=== PATIENT | male | born 1980 | race Hispanic/Latino ===

== ENCOUNTER 2018-12-06 16:30 | Inpatient (IN) | payer SELFPAY ==
[~2018-12-06 16:30] MED LIST: ISOVUE-370 76%-LOCM 1 ML ONE
--- NOTE | 2018-12-06 16:48 | RAD ---
RADIOGRAPH CHEST 1 VIEW: DATE: 12/06/2018 HISTORY: Traumatic right-sided chest pain due to fall FINDINGS: There is no airspace density, pulmonary edema, or pneumothorax. The lateral costophrenic angles are n ot effaced. IMPRESSION: No acute pulmonary findings.
--- NOTE | 2018-12-06 16:57 | CT ---
CT Brain WO Con: 12/06/2018 4:40 PM CLINICAL HISTORY: Fall; level 2 trauma; the patient fell six-foot from a ladder hitting head on air-c onditioning unit. IMAGING TECHNIQUE: Multiple CT images were obtained of the brain without IV contrast. COMPARISON: None. FINDINGS: Infarct: No acute infarct evident. Hemorrhage: None.. Hydrocephalus: None.. Basal cisterns: Normal.. Cerebral parenchyma: Normal.. Midline shift: None.. Cerebellum: Normal. Brainstem: Normal. OTHER: Calvarium: There is a 2.5 cm depressed right parietal skull fracture that is displaced internally 6 m m, abutting the right parietal cortex with adjacent pneumocephalus. Visualized Paranasal sinuses: Clear.. Extracranial soft tissues:Overlying the right parietal skull fracture is a scalp laceration and right parietal scalp contusion. IMPRESSION: Depressed type right parietal skull fracture with associated pneumocephalus. Findings shawn led to Dr. Kowalski at 4:50 PM on December 06, 2018.
--- NOTE | 2018-12-06 16:59 | CT ---
CT Cervical Spine WO Con Indication: Fall 6 with from ladder; level 2 trauma; concern for neck injury COMPARISON: None. FINDINGS: Acute fracture/subluxation: None. Spinal alignment: No acute malalignment. Craniocervical junction: Within normal limits. Vertebral body heights: Maintained. Cervical spine degenerative change: None of significance. Lung apices: Clear. IMPRESSION: No acute osseous abnormality.
--- NOTE | 2018-12-06 17:07 | CT ---
CT Chest W Con: 12/06/2018 4:40 PM CLINICAL INDICATION: Level 2 trauma; fall 6 feet from a ladder with significant chest injury. COMPARISON: None.. FINDINGS: Lung and Large Airways: There is a focal contusion involving the posterior lateral right lower lobe. The left lung is clear. Pleura: There is a tiny right hemopneumothorax. Vessels: Normal appearing. Heart: Normal appearing. No pericardial effusion.. Mediastinum and Mirian: Normal. Chest Wall and Lower Neck: Normal. Upper Abdomen: There are 2 separate contusions involving the right hepatic lobe just subjacent to rig ht-sided rib fractures. The largest is seen within segment 7 of the right hepatic lobe measuring 3.3 cm. The additional contusion is seen within segment 6 of the right hepatic lobe measuring 1.8 cm. No definite free fluid is evident within the upper abdomen. Bones: There are right 8th through 12th rib fractures with segmental fractures involving the right 10 th through 12th ribs. There is a mildly displaced right L1 transverse process fracture. IMPRESSION: 1. Right eighth through 12th rib fractures involving the posterolateral right chest wall. The right 1 0th through 12th rib fractures are segmental. There is a mildly displaced right L1 transverse process fracture. 2. Small right hemopneumothorax and tiny pulmonary contusion involving the right lower lobe. 3. Grade 2 liver injury. 4. Findings concerning the CT the cervical spine and CT of the thorax were called to Dr. Kowalski at 5 :00 PM on December 06, 2018.
[2018-12-06] MEDS ORDERED: Adacel (T-DAP) 0.5 ML SYRINGE ONE (17:30)
[2018-12-06] MEDS ORDERED: Morphine 4 MG/ML VIAL ONE (17:30)
[2018-12-06] MEDS ORDERED: Morphine 2 MG/ML SYRINGE SLOW IVP PRN (18:08)
[2018-12-06] MEDS ORDERED: Dextrose 5% in Water 1,000 ML IV PRN (18:08)
[2018-12-06] MEDS ORDERED: Dextrose 50% Abboject 50 ML SYRINGE SLOW IVP PRN (18:08)
[2018-12-06] MEDS ORDERED: Ondansetron PF 4 MG/2 ML Vial IVP PRN (18:08)
[2018-12-06] MEDS ORDERED: hydrALAZINE 20 MG/ML VIAL SLOW IVP PRN (18:08)
[2018-12-06] MEDS ORDERED: Ondansetron ODT 4 MG TAB PO PRN (18:08)
[2018-12-06] MEDS ORDERED: Morphine 4 MG/ML VIAL SLOW IVP PRN (18:08)
[2018-12-06 18:12] LABS: #Eosinphils 0.1 thou/uL (0.0-0.7); #Lymphocytes 1.3 thou/uL (1.20-3.40); #Monocytes 0.6 thou/uL (0.11-0.59); #Neutrophils 11.5 thou/uL (1.40-6.50); %Eosinophils 0.9 % (0.0-10.0); %Lymphocytes 9.5 % (21.0-51.0); %Monocytes 4.6 % (0.0-10.0); %Neutrophils 84.8 % (42.0-75.0); Hemoglobin 15.3 g/dL (14.0-18.0); Mean Corpuscular HGB CONC 34.3 g/dL (32.0-36.0); Mean Corpuscular Hemoglobin 30.6 pg (27.0-31.0); Mean Corpuscular Volume 89.3 fL (78.0-98.0); Mean Platelet Volume 7.9 fL (7.4-10.4); Platelet Count 188 thou/uL (130-400); RBC Distribution Width 11.6 % (11.5-14.5); White Blood Cell (WBC) Count 13.5 thou/uL (4.8-10.8)
[2018-12-06] MEDS ORDERED: traMADol HCl 50 MG TAB PO PRN ×2 (18:15→18:31)
[2018-12-06] MEDS ORDERED: Cyclobenzaprine 10 MG TAB PO PRN (18:18)
[2018-12-06 18:19] LABS: PTT 27.3 SEC (22.9-36.1); Prothrombin Time 13.3 SEC (12.0-14.7)
[2018-12-06] MEDS ORDERED: Ketorolac Tromethamine 30 MG/ML VIAL ONE (18:21)
[2018-12-06 18:42] LABS: ALT (SGPT) 155 U/L (8-55); AST (SGOT) 179 U/L (5-34); Albumin 4.5 g/dL (3.5-5.0); Alkaline Phosphatase 78 U/L (40-150); Anion Gap 14 mmol/L (10-20); BUN (Urea Nitrogen) 13 mg/dL (8.9-20.6); Bilirubin, Total 1.1 mg/dL (0.2-1.2); Calc. Creatinine Clearance 0 mL/min (70-130); Calcium 9.6 mg/dL (7.8-10.44); Carbon Dioxide 24 mmol/L (22-29); Chloride 104 mmol/L (98-107); Estimated GFR-MDRD Greater than 90; Globulin 3.1 g/dL (2.4-3.5); Glucose 113 mg/dL (70-105); Potassium 3.7 mmol/L (3.5-5.1); Protein, Total 7.6 g/dL (6.0-8.3); Sodium 138 mmol/L (136-145)
[2018-12-06] MEDS ORDERED: Ketorolac Tromethamine 30 MG/ML VIAL IVP SCH (18:45)
[2018-12-06] MEDS ORDERED: Acetaminophen 1,000 MG in Premix Bag 1 BAG IVPB SCH (18:45)
[2018-12-06 19:13] LABS: Magnesium 2.3 mg/dL (1.6-2.6); Phosphorus 3.2 mg/dL (2.3-4.7)
--- NOTE | 2018-12-06 19:23 | HP ---
This is Wendy Montes NP dictating a report for Jose Daniel Reyna MD. ATTENDING TRAUMA SURGEON: Jose Daniel Reyna MD CONSULTS: Neurosurgery. HISTORY OF PRESENT ILLNESS: This is a level 2 trauma activation. This is a 38-year-old gentleman, who was at work when he did not realize the ladder moved causing him to fall. EMS reports a positive loss of consciousness. The patient states that when he fell, he hit his head and landed on air conditioner unit. The patient complained of right-sided rib pain and was given fentanyl 100 mcg IV for pain en route. The patient has been hemodynamically stable since the injury. The patient had minimal blood loss from head laceration. GCS has remained 15. The patient did not have any nausea or vomiting. The patient did have diarrhea yesterday, 4 episodes in which he took Imodium and it resolved. Otherwise, the patient has been healthy and has not seen a physician in several years. PAST MEDICAL HISTORY: The patient denies. PAST SURGICAL HISTORY: Left wrist surgery. SOCIAL HISTORY: Denies tobacco use. Occasional alcohol use. Denies any illicit drug use. The patient lives at home with his . The patient works in construction. ALLERGIES: DENIES ANY DRUG ALLERGIES. REVIEW OF SYSTEMS: A 10-point review of systems is negative unless otherwise indicated in the above HPI. PHYSICAL EXAMINATION: VITAL SIGNS: Blood pressure 144/93, pulse 85, respirations 20, temperature 98.2, SpO2 99% on room air. GENERAL: A well-appearing gentleman, in no acute distress. Moderate amount of pain from right rib fractures. HEENT: Head, right posterior scalp hematoma with a 2.5 cm L-shaped laceration, 4 delores placed by ER physician. Eyes, pupils equal and reactive at 2 mm bilateral, no visual changes. ENT; ears normal exam, external ears negative, tympanic membranes normal, no bleeding, no hemotympanum. Oropharynx exam normal. Mucous membranes are moist. Teeth are normal. NECK: Normal range of motion, trachea is midline. No posterior cervical tenderness. C-spine cleared by ER physician. RESPIRATORY: Slightly shallow respirations due to pain. No respiratory distress. Bilateral breath sounds clear to auscultation. No wheezing, rales, or rhonchi. No obvious deformity, tenderness to right upper chest. CARDIOVASCULAR: Regular rate and rhythm. No murmurs. No pedal edema. ABDOMEN: Soft, nontender, nondistended. No obvious injuries. PELVIS: Stable, nontender. BACK: Mild tenderness in the lumbar region, no step-offs. EXTREMITIES: Moves all extremities, pulses 2+ in all extremities, normal sensation, strength in all extremities 5/5. NEUROLOGIC: GCS 15. No focal deficits. The patient is oriented to person, place, time. Normal speech. LABORATORY DATA: WBC 13.5, RBC 5.00, hemoglobin 15.3, hematocrit 44.7, platelets 188. PT 13.3, INR 1.0, APTT 27.3. CMP results pending. DIAGNOSTIC DATA: Chest x-ray, no acute pulmonary findings. Brain CT; impression, there is a 2.5 cm depressed right parietal skull fracture that is displaced internally 6 mm, abutting the right parietal cortex with adjacent pneumocephalus. Visualized parasinuses clear. Extracranial soft tissues overlying the right parietal skull fracture is a scalp laceration and right parietal scalp contusion. Cervical spine CT, no acute osseous abnormality. Chest CT; impression, right 8th through 12th rib fractures involving the posterolateral right chest wall. The right 10 through 12 rib fractures are segmental. There is a mildly displaced right L1 transverse process fracture. Small right hemothorax and tiny pulmonary contusion involving the right lower lobe. Grade 2 liver injury. IMPRESSION: 1. Status post fall from 6 feet. 2. Right open depressed skull fracture with pneumocephalus. 3. Multiple right rib fractures. 4. Right pulmonary contusion. 5. Right small tiny hemopneumo. 6. Scalp laceration. 7. Displaced right L1 transverse process fracture. 8. Grade 2 liver injury. PLAN: We will admit the patient to the [facility] with frequent neuro checks. We will repeat a head CT per Neurosurgery request in the morning. We will repeat sooner if the patient has any neuro changes overnight. We will place the patient on rib fracture protocol. We will place the patient on a diet as tolerated. We will place the patient on mechanical DVT prophylaxis. We will hold chemical DVT prophylaxis at this time until we have a repeat head CT. We will repeat a chest x-ray in the morning. We will also repeat lab work in the morning. We will encourage incentive spirometer use. We will place a PT/OT consult. The plan has been discussed with the attending trauma surgeon who agrees. Job ID: [id number]
[2018-12-06] MEDS: Senokot S 8.6-50 MG TAB PO SCH (21:02)
[2018-12-06] MEDS: Sodium Chloride 0.9% 1,000 ML IV SCH (21:02)
[2018-12-06] MEDS: Ibuprofen 800 MG TAB PO SCH (21:02)
[2018-12-06] MEDS: Gabapentin 300 MG CAP PO SCH (21:02)
[2018-12-06] MEDS ORDERED: CEFAZOLIN 1 GM VIAL SLOW IVP SCH (22:00)
[2018-12-06 22:08] VITALS: BMI 24.8
[2018-12-06] MEDS: Lidocaine 5% Patch TD SCH (22:17)
[2018-12-06] MEDS: ceFAZolin 1 GM/D5W 1 GM in Premix Bag 1 BAG IVPB SCH (22:17)
[2018-12-07] MEDS: Acetaminophen 500 MG TAB PO SCH ×4 (00:10→17:10)
[2018-12-07] MEDS: traMADol HCl 50 MG TAB PO SCH ×4 (00:10→17:11)
--- NOTE | 2018-12-07 01:57 | CON ---
DATE OF CONSULTATION: This is Guerita Street PA-C dictating a report for Genaro Tee MD. HISTORY OF PRESENT ILLNESS: The patient is a 38-year-old male who is otherwise healthy, known to the emergency department per EMS after a mechanical fall off a ladder at approximately 6 foot high. The patient reportedly fell from the ladder, hitting his head on an A/C unit and then to the floor. Patient had positive LOC for approximately 1 minute. EMS arrived at the scene and brought the patient to the [facility] ER for further evaluation and management. The patient received 100 mcg of fentanyl prior to arrival for pain. CT of the head was notable for a small right-sided depressed parietal skull fracture. This is an open fracture with overlying laceration. CT of the cervical spine and remainder of the spine was negative for acute injuries. However, patient does have multiple rib fractures with right-sided hemopneumothorax and right-sided pulmonary contusions. There was also a notable right L1 transverse process fracture, which is inconsequential. I visited with the patient the bedside. His only complaint is some shortness breath and right-sided chest pain. There are multiple family members as well at the bedside, who are assisting with translation. PAST MEDICAL HISTORY: The patient is otherwise healthy. Denies any other medical problems. PAST SURGICAL HISTORY: Left hand surgery. SOCIAL HISTORY: The patient does not smoke, drink, or use any drugs. ALLERGIES: NO KNOWN DRUG ALLERGIES. CURRENT MEDICATION: Zyrtec. REVIEW OF SYSTEMS: Per HPI. PHYSICAL EXAMINATION: VITAL SIGNS: BP is 144/93, respiration rate is 20, patient is 99% on room air, pulse is 85, temperature is 98.2. CONSTITUTIONAL: Awake, alert, in no acute distress. GCS 15. HEAD: He has a right parietal area of swelling with small curve, 2.5 cm laceration. Eyes, PERRLA. Extraocular movements intact. ENT: Oral mucosa is pink, intact and moist. The patient has normal voice. NECK: Nontender to palpation. Free active range of motion. No meningismus. No nuchal rigidity. RESPIRATORY: The patient does not appear to be in any respiratory distress. He is having some right-sided chest discomfort and has multiple rib fractures. CARDIOVASCULAR: Regular rate and rhythm. BACK: Nontender to palpation. MUSCULOSKELETAL: Free active range of motion. No focal motor weakness. No reflex asymmetry. No obvious deformities. NEUROLOGIC: GCS 15. A and O x4. No focal neurologic deficits are appreciated. ASSESSMENT AND PLAN: This is a 38-year-old male status post mechanical fall off a ladder who struck his head on an A/C unit, was found to have a right-sided depressed open parietal skull fracture. He is neurologically intact. We will plan to have the ER close this wound with delores. We will also begin patient on Ancef considering that this is an open fracture. The patient has been admitted by the Trauma Service for his additional injuries. We will plan to repeat his noncontrast head CT. I have discussed this plan with Dr. Tee who is in agreement. At this time, I do not anticipate any acute neurosurgical intervention. Job ID: [id number]
--- NOTE | 2018-12-07 01:59 | HP ---
CHIEF COMPLAINT: Fall from 6 feet. HISTORY OF PRESENT ILLNESS: The patient is a 38-year-old pleasant male. He was at work when he fell approximately 6 feet off a ladder landing on an air conditioner unit. He was thoroughly evaluated in the emergency room with laboratory and radiologic evaluation. Wendy Montes NP saw the patient and performed full evaluation as well. I have examined the patient at his bed in the [facility], I have reviewed Ms. Montes's history and physical examination, I reviewed all radiologic studies. My impression is in agreement with that of Ms. Montes's. He is very stable hemodynamically. He shows no neurologic signs of impairment in light of his depressed skull fracture. He does have appropriate discomfort with deep respiration as anticipated with his rib fractures. Management will be as recommended by Ms. Montes. Job ID: [id number]
[2018-12-07 05:36] LABS: #Eosinphils 0.2 thou/uL (0.0-0.7); #Lymphocytes 1.6 thou/uL (1.20-3.40); #Monocytes 0.7 thou/uL (0.11-0.59); #Neutrophils 5.7 thou/uL (1.40-6.50); %Basophils 0.1 % (0.0-1.0); %Eosinophils 2.3 % (0.0-10.0); %Lymphocytes 19.1 % (21.0-51.0); %Monocytes 8.4 % (0.0-10.0); %Neutrophils 70.1 % (42.0-75.0); Band 9 % (5-11); Eosinophils 1 % (0-10); Hemoglobin 14.5 g/dL (14.0-18.0); Lymphocytes 19 % (21-51); MDiff Complete? YES; Mean Corpuscular HGB CONC 34.9 g/dL (32.0-36.0); Mean Corpuscular Hemoglobin 31.5 pg (27.0-31.0); Mean Corpuscular Volume 90.2 fL (78.0-98.0); Mean Platelet Volume 8.5 fL (7.4-10.4); Monocytes 4 % (0-10); Neutrophil 67 % (42-75); Nucleated RBC 1 % (0); Platelet Count 176 thou/uL (130-400); Platelet Morphology Comment Appears Adequate; RBC Distribution Width 11.8 % (11.5-14.5); Red Blood Cell (RBC) Count 4.59 mill/uL (4.70-6.10); White Blood Cell (WBC) Count 8.2 thou/uL (4.8-10.8)
[2018-12-07 05:37] LABS: ALT (SGPT) 122 U/L (8-55); AST (SGOT) 122 U/L (5-34); Albumin 3.9 g/dL (3.5-5.0); Alkaline Phosphatase 66 U/L (40-150); Anion Gap 14 mmol/L (10-20); BUN (Urea Nitrogen) 13 mg/dL (8.9-20.6); Bilirubin, Total 1.2 mg/dL (0.2-1.2); Calc. Creatinine Clearance 118 mL/min (70-130); Calcium 9.2 mg/dL (7.8-10.44); Carbon Dioxide 21 mmol/L (22-29); Chloride 106 mmol/L (98-107); Estimated GFR-MDRD Greater than 90; Globulin 2.7 g/dL (2.4-3.5); Glucose 95 mg/dL (70-105); Magnesium 2.2 mg/dL (1.6-2.6); Phosphorus 3.9 mg/dL (2.3-4.7); Protein, Total 6.6 g/dL (6.0-8.3); Sodium 137 mmol/L (136-145)
[2018-12-07] MEDS: Ibuprofen 800 MG TAB PO SCH ×3 (06:33→21:57)
--- NOTE | 2018-12-07 07:15 | RAD ---
CHEST 1 VIEW: Date: 12/07/18 INDICATION: History of right-sided hemopneumothorax. COMPARISON: Prior exam dated 12/06/18. FINDINGS: No large pneumothorax is evident. Heart size is normal. Patient's known small right hemopneumothorax seen best on CT of the chest dated 12/06/18 is not definitely appreciated. Patient's known right-side d rib fractures are not as well seen as on the comparison CT evaluation. IMPRESSION: No large pneumothorax. POS: [facility]
--- NOTE | 2018-12-07 08:25 | CT ---
CT BRAIN WITHOUT CONTRAST: Date: 12/07/18 INDICATION: Follow-up right parietal skull fracture. COMPARISON: CT brain dated 12/06/18 at 1644 hours. FINDINGS: The depressed right parietal skull fracture is unchanged in position when compared to the prior exam. Small amount of pneumocephalus is still seen overlying the depressed fracture fragment. Tiny amounts of density seen adjacent to the fragment likely reflect a small amount of extra-axial hemorrhage. Th is is not appreciably changed from the comparison. No midline shift or hydrocephalus is evident. No u nderlying parenchymal contusion is evident. Mucosal thickening within the sphenoid air cell is stable . There has been interval skin stapling of the overlying right parietal scalp laceration. Contusion e volves overlying the right parietal scalp region. IMPRESSION: Stable depressed right parietal skull fracture. POS: [facility]
[2018-12-07] MEDS ORDERED: traMADol HCl 50 MG TAB PO PRN (08:47)
[2018-12-07] MEDS ORDERED: Famotidine/PF 20 mg/2ml Vial SLOW IVP SCH (09:00)
[2018-12-07] MEDS: ceFAZolin 1 GM/D5W 1 GM in Premix Bag 1 BAG IVPB SCH (10:13)
[2018-12-07] MEDS: Sodium Chloride 0.9% 1,000 ML IV SCH (10:14)
[2018-12-07] MEDS: Gabapentin 300 MG CAP PO SCH ×2 (10:16→20:14)
[2018-12-07] MEDS: Polyethylene Glycol 3350 17 GM Packet PO SCH (10:16)
[2018-12-07] MEDS: Senokot S 8.6-50 MG TAB PO SCH ×2 (10:16→20:14)
[2018-12-07] MEDS: Lidocaine Patch Removal 1 EACH TOP SCH (10:57)
--- NOTE | 2018-12-07 12:11 | RAD ---
XR Shoulder Rt 3 View STANDARD History: [Fall. Pain.] Comparison: None. Findings: No acute displaced fracture or malalignment of the right shoulder., Clavicular alignment is normal. Mildly displaced right eighth rib fracture is present. No pneumothorax. Impression: Mildly displaced right eighth rib fracture.
[2018-12-07] MEDS: Cephalexin 250 MG CAP PO SCH ×3 (14:53→20:14)
--- NOTE | 2018-12-07 16:14 | PRG ---
DATE OF SERVICE: 12/07/2018 SUBJECTIVE: Dre Arrieta is a 38-year-old male patient, seen on rounds. He is seen on trauma service. The patient fell off a ladder, 6 feet, striking his head in the air conditioner. He suffered a skull fracture. He has been seen by Neurosurgery and treated with antibiotics after the scalp wound was closed. No surgical intervention is planned. The patient states he did not lose consciousness. He has suffered rib fractures and grade 2 liver injury, scalp lacerations, small depressed skull fracture, not in need operative intervention of ribs, and right T12 fracture. OBJECTIVE: GENERAL: The patient is stable this morning. He is hungry. LUNGS: Clear to auscultation. CARDIAC: Rhythm without murmur or gallop. ABDOMEN: Soft and nontender. VITAL SIGNS: Temperature 110/71, heart rate 84, and temperature 97.1 degrees. IMAGING STUDIES: Repeat CAT scan of his head reveals no changes. ASSESSMENT AND PLAN: The patient is doing well. Plan is to transfer him to the surgical floor. We would plan to probably discharge home tomorrow with trauma follow up in 2 to 3 weeks. Job ID: [id number]
[2018-12-07] MEDS: Lidocaine 5% Patch TD SCH (21:57)
[2018-12-08] MEDS: Acetaminophen 500 MG TAB PO SCH ×2 (00:17→05:26)
[2018-12-08] MEDS: traMADol HCl 50 MG TAB PO SCH ×2 (00:18→05:26)
[2018-12-08] MEDS: Ibuprofen 800 MG TAB PO SCH (05:26)
[2018-12-08 06:40] LABS: #Basophils 0.1 thou/uL (0.0-0.2); #Eosinphils 0.3 thou/uL (0.0-0.7); #Lymphocytes 1.6 thou/uL (1.20-3.40); #Monocytes 0.6 thou/uL (0.11-0.59); #Neutrophils 4.8 thou/uL (1.40-6.50); %Basophils 0.7 % (0.0-1.0); %Eosinophils 4.6 % (0.0-10.0); %Lymphocytes 21.2 % (21.0-51.0); %Monocytes 7.9 % (0.0-10.0); %Neutrophils 65.6 % (42.0-75.0); Hemoglobin 13.7 g/dL (14.0-18.0); Mean Corpuscular HGB CONC 34.9 g/dL (32.0-36.0); Mean Corpuscular Hemoglobin 31.8 pg (27.0-31.0); Mean Corpuscular Volume 91.3 fL (78.0-98.0); Mean Platelet Volume 8.1 fL (7.4-10.4); Platelet Count 148 thou/uL (130-400); RBC Distribution Width 11.7 % (11.5-14.5); White Blood Cell (WBC) Count 7.4 thou/uL (4.8-10.8)
[2018-12-08 06:54] LABS: Anion Gap 10 mmol/L (10-20); BUN (Urea Nitrogen) 10 mg/dL (8.9-20.6); Calc. Creatinine Clearance 124 mL/min (70-130); Calcium 9.3 mg/dL (7.8-10.44); Carbon Dioxide 29 mmol/L (22-29); Chloride 102 mmol/L (98-107); Estimated GFR-MDRD Greater than 90; Glucose 90 mg/dL (70-105); Magnesium 2.2 mg/dL (1.6-2.6); Phosphorus 3.9 mg/dL (2.3-4.7); Potassium 3.9 mmol/L (3.5-5.1); Sodium 137 mmol/L (136-145)
[2018-12-08] MEDS: Senokot S 8.6-50 MG TAB PO SCH (08:04)
[2018-12-08] MEDS: Gabapentin 300 MG CAP PO SCH (08:04)
[2018-12-08] MEDS: Polyethylene Glycol 3350 17 GM Packet PO SCH (08:04)
[2018-12-08] MEDS: Cephalexin 250 MG CAP PO SCH (08:04)
--- NOTE | 2018-12-08 08:12 | RAD ---
SINGLE VIEW OF THE CHEST: Comparison: 12-07-18 History: Right sided pneumothorax/hemothorax. FINDINGS: Single view of the chest shows a normal sized cardiomediastinal silhouette. There is no evidence of c onsolidation, mass, or pleural effusion. The bones are unremarkable. IMPRESSION: No evidence of acute cardiopulmonary disease. POS: [facility]
[2018-12-08] MEDS: Lidocaine Patch Removal 1 EACH TOP SCH (08:42)
[2018-12-08 10:59] VITALS: BP 131/82; TEMP 97.9
--- NOTE | 2018-12-08 21:20 | DIS ---
DATE OF ADMISSION: 12/06/2018 DATE OF DISCHARGE: 12/08/2018 ADMISSION DIAGNOSES: Fall from ladder 5-6 feet, grade 2 liver laceration, right open skull fracture, right-sided skull laceration, small right hemopneumothorax, right pulmonary contusion, right ribs 8 through 12 fractures, right-sided L1 spinous process fracture. DISCHARGE DIAGNOSES: Fall from ladder 5-6 feet, grade 2 liver laceration, right open skull fracture, right-sided skull laceration, small right hemopneumothorax, right pulmonary contusion, right ribs 8 through 12 fractures, right-sided L1 spinous process fracture. CONSULTING PHYSICIAN: Dr. Tee of Neurosurgery. PROCEDURES: None. HOSPITAL COURSE: The patient is a 38-year-old male who presented to the emergency department after falling off a ladder and landing onto his right side. He received a CT scan and imaging which demonstrated he had a grade 2 liver laceration, open skull fracture, right hemopneumo, multiple rib fractures, right pulmonary contusion and right L2 spinous process fracture. His scalp was stapled and he was started on IV antibiotics. Dr. Tee was consulted, who recommended switching to oral Keflex. CT head in the morning the next day was negative. He was originally admitted to the IMCU, but went to the floor the next day. At the time of discharge, the patient's pain was well controlled. He was tolerating a regular diet, ambulating without difficulties, had voided without issues. Chest x-ray, followup, the next day was also negative for hemopneumothorax. He was discharged home with p.o. pain medications as well as Keflex for 14 days. DISCHARGE DISPOSITION: Home. DISCHARGE CONDITION: Satisfactory. PHYSICAL EXAMINATION: VITAL SIGNS: Temperature 97.9, pulse 61, respirations 16, oxygen saturation 95% on room air, blood pressure 131/82. GENERAL: Well-appearing young male, sitting up in bed with no signs of acute distress. PULMONARY: Equal chest rise and fall. Clear breath sounds bilaterally. No signs of acute respiratory distress. Pulling 3200 on his incentive spirometer. CARDIAC: Regular rate and rhythm. No murmurs, gallops, or rubs. GI: Abdomen is soft, nontender, nondistended. EXTREMITIES: 2+ pulses in all extremities. No significant swelling noted. Gross motor and sensation intact in all extremities. NEUROLOGIC: GCS is 15. No focal neurological deficits. Pupils equal, round, reactive to light bilaterally. DISCHARGE INSTRUCTIONS: The patient was discharged home with q.1 hour incentive spirometry and deep coughing. Activity as tolerated. Regular diet. He is to follow up with Trauma on 12/16, at 10:40. He is also to follow up with Dr. Tee in 2 weeks. He is to receive a chest x-ray before his followup with Trauma. DISCHARGE MEDICATIONS: 1. Tylenol. 2. Ibuprofen. 3. Keflex for 14 days. 4. Lidoderm patches. 5. Flexeril. 6. Tramadol. This is merely a summary of the patient's hospitalization. For full details, please see his medical record in its entirety. Job ID: [id number]
== END 2018-12-08 10:58 | disposition home or self-care (01) | DRG 963 ==
LOC: ERS 16:30 → IMCU/EMU 20:33 → SURG B 12-07 18:09
PROVIDERS: ADMIT Specialist; ATTEND Specialist
PROC: 0HQ0XZZ Repair Scalp Skin, External Approach (ICD-10-PCS; principal; 2018-12-06)
DX: S27.2XXA Traumatic hemopneumothorax, initial encounter (principal); S02.0XXB Fracture of vault of skull, initial encounter for open fracture; S36.113A Laceration of liver, unspecified degree, initial encounter; S32.019A Unspecified fracture of first lumbar vertebra, initial encounter for closed fracture; S22.41XA Multiple fractures of ribs, right side, initial encounter for closed fracture; S27.321A Contusion of lung, unilateral, initial encounter; S01.01XA Laceration without foreign body of scalp, initial encounter; J30.2 Other seasonal allergic rhinitis; W11.XXXA Fall on and from ladder, initial encounter; Y93.H3 Activity, building and construction; Y92.89 Other specified places as the place of occurrence of the external cause; Z79.899 Other long term (current) drug therapy
CPT/HCPCS: 12001; 36415; 70450; 71045; 71260; 72125; 80048; 80053; 83735; 84100; 85025; 85610; 85730; 90471; 90715; 94640; 96365; 96375; G0390; J0131; J0690; J1885; J2270; J7620; Q9966